=== PATIENT | female | born 1970 | race Asian ===

== ENCOUNTER → 2016-12-15 | Outpatient (CLI) | payer OTHER ==
[2016-11-11 21:45] VITALS: BP 160/81
--- NOTE | 2016-12-15 16:21 | RAD ---
Abdominal ultrasound, 12/15/2016: History: Chronic nausea The gallbladder is within normal limits in size. There are several small echogenic foci along the gallbladder davis. These are not mobile and they do not cast posterior acoustic shadows. The appearance is that of a small polyps. Adherent tumefactive sludge is less likely. The largest of these measures approximately 4 mm. No definite gallstones are seen. The gallbladder davis are otherwise unremarkable. No bile duct dilatation is seen. The visualized portions of the liver, pancreas, spleen and both kidneys are unremarkable. The abdominal aorta is of normal caliber. The inferior vena cava shows no abnormality. IMPRESSION: 1. Small gallbladder polyps. 2. The abdominal ultrasound is otherwise unremarkable.
== END | disposition home or self-care (01) ==
LOC: US 09:39
PROVIDERS: ATTEND Family Medicine
DX: R11.0 Nausea (principal); K82.4 Cholesterolosis of gallbladder
CPT/HCPCS: 76700